=== PATIENT | female | born 1970 | race American Indian/Alaskan Native ===

== ENCOUNTER 2016-08-10 08:14 | Outpatient (CLI) | payer BC ==
--- NOTE | 2016-08-10 13:31 | Mammography Report ---
BILATERAL DIGITAL SCREENING MAMMOGRAM with CAD: 08/10/16 08:14:00 CLINICAL: Routine screening. COMPARISON:08/10/15 FINDINGS: The breasts are heterogeneously dense, which may obscures small masses. Bilateral asymmetries require additional imaging.No architectural distortion or suspicious calcifications. IMPRESSION: Bilateral asymmetries requiring further workup. BI-RADS CATEGORY: 0 -- Additional Imaging Evaluation Required RECOMMENDATION: Recall for bilateral spot compression views and bilateral breast ultrasound if needed. ACR BI-RADS MAMMOGRAPHIC CODES: 0 = Needs additional imaging evaluation; 1 = Negative; 2 = Benign; 3 = Probably benign; 4 = Suspicious; 5 = Malignant; 6 = Known biopsy-proven malignancy COMMENT: 1. Dense breast tissue, i.e., adenosis, fibrocystic changes, etc., may obscure an underlying neoplasm. 2. Approximately 10% of cancers are not detected with mammography. 3. A negative mammography report should not delay biopsy if a clinically suspicious mass is present. COMMENT: Patient follow-up letters are generated via our [employer] application.
== END 2016-08-10 08:15 | disposition home or self-care (01) ==
LOC: SPVWC 08:14
PROVIDERS: ATTEND Obstetrics & Gynecology
DX: Z12.31 Encounter for screening mammogram for malignant neoplasm of breast (principal)
CPT/HCPCS: 77067; G0202

== ENCOUNTER 2016-08-22 08:33 | Outpatient (CLI) | payer BC ==
--- NOTE | 2016-08-22 09:17 | Mammography Report ---
BILATERAL DIGITAL DIAGNOSTIC MAMMOGRAM : 08/22/16 08:33:00 CLINICAL: Recalled for bilateral asymmetries. COMPARISON:08/10/16 screening FINDINGS: Bilateral spot compression MLO views were performed and demonstrate no persistent asymmetries. IMPRESSION: Negative Mammogram. BI-RADS CATEGORY: 1 -- Negative RECOMMENDATION: Routine mammographic screening in one year. ACR BI-RADS MAMMOGRAPHIC CODES: 0 = Needs additional imaging evaluation; 1 = Negative; 2 = Benign; 3 = Probably benign; 4 = Suspicious; 5 = Malignant; 6 = Known biopsy-proven malignancy COMMENT: 1. Dense breast tissue, i.e., adenosis, fibrocystic changes, etc., may obscure an underlying neoplasm. 2. Approximately 10% of cancers are not detected with mammography. 3. A negative mammography report should not delay biopsy if a clinically suspicious mass is present. COMMENT: Patient follow-up letters are generated via our [employer] application.
== END 2016-08-22 08:34 | disposition home or self-care (01) ==
LOC: SPVWC 08:33
PROVIDERS: ATTEND Obstetrics & Gynecology
DX: R92.8 Other abnormal and inconclusive findings on diagnostic imaging of breast (principal)
CPT/HCPCS: 77066; G0204

== ENCOUNTER 2017-08-24 08:12 | Outpatient (CLI) | payer BC ==
--- NOTE | 2017-08-24 16:18 | Mammography Report ---
BILATERAL DIGITAL SCREENING MAMMOGRAM with CAD: 08/24/17 08:12:00 CLINICAL: Routine screening. COMPARISON:08/10/16 and 08/10/15 FINDINGS: The breasts are heterogeneously dense, which may obscure small masses. No mass, architectural distortion or suspicious calcifications. IMPRESSION: No mammographic evidence of malignancy. BI-RADS CATEGORY: 1 - - Negative RECOMMENDATION: Routine mammographic screening in one year. COMMENT: Patient follow-up letters are generated by our [employer] application.
== END 2017-08-24 08:13 | disposition home or self-care (01) ==
LOC: SPVWC 08:12
PROVIDERS: ATTEND Obstetrics & Gynecology
DX: Z12.31 Encounter for screening mammogram for malignant neoplasm of breast (principal)
CPT/HCPCS: 77067

== ENCOUNTER 2018-09-20 08:30 | Outpatient (CLI) | payer BC ==
--- NOTE | 2018-09-20 09:45 | Mammography Report ---
DIGITAL SCREENING MAMMOGRAM WITH CAD, 09/20/2018 INDICATION: Routine screening mammography. TECHNIQUE: Digital bilateral 2D mammography was obtained in the craniocaudal and mediolateral obliq ue projections. This examination was interpreted with the benefit of Computer-Aided Detection analysi s. COMPARISON: 08/10/2015 FINDINGS: Breast Density: The breasts are heterogeneously dense, which may obscure small masses. There is no evidence of dominant mass, suspicious calcifications or architectural distortion in eithe r breast. No interval change. IMPRESSION: No evidence of malignancy. BI-RADS Category 1: Negative. No mammographic evidence of malignancy. Recommend routine screening m ammography in one year. A "normal" or negative report should not discourage follow up or biopsy of a clinically significant f inding. A written summary of these findings will be mailed to the patient. The patient will be entered into a mammography reporting system which will generate a reminder letter for the patient's next appointmen t at the appropriate interval. The [employer] recommends yearly mammograms starting at age 40 and continuing as l delroy as a woman is in good health. Breast MRI is recommended for women with an approximate 20-25% or greater lifetime risk of breast cancer, including women with a strong family history of breast or ova venecia cancer or who have been treated for Hodgkin's disease. Signer Name: Yanna Salazar MD Signed: 09/20/2018 9:40 AM Workstation Name: [id number]
== END 2018-09-20 08:31 | disposition home or self-care (01) ==
LOC: SPVWC 08:30
PROVIDERS: ATTEND Obstetrics & Gynecology
DX: Z12.31 Encounter for screening mammogram for malignant neoplasm of breast (principal)
CPT/HCPCS: 77067

== ENCOUNTER 2019-09-24 08:33 | Outpatient (CLI) | payer BC ==
--- NOTE | 2019-09-25 11:17 | Mammography Report ---
BILATERAL DIGITAL SCREENING MAMMOGRAM WITH CAD HISTORY: SCREENING TECHNIQUE: Routine digital mammographic imaging performed. This examination was interpreted with skip franklin benefit of Computer-aided Detection analysis. COMPARISON: 09/20/2018, 08/24/2017, 08/22/2016, 08/10/2016. FINDINGS: Breast Density: scattered fibroglandular appearance of the breast tissue. Digital CC and MLO views demonstrate no mammographic evidence of malignancy. IMPRESSION: No mammographic evidence of malignancy. If the clinical examination remains stable, recommend bilate ral mammogram in approximately one year. BIRADS 1: Negative. FURTHER INFORMATION: According to the [employer], yearly mammograms are recommend ed starting at age 40 and continuing as long as a woman is in good health. Clinical Breast Exams shou ld be part of a periodic health exam-about every 3 years for women in their 20s and 30s and every yea r for women 40 and over. Breast self exam is an option for women starting in their 20s. Any breast ch dara noted on a breast self exam should be reported promptly to the patient's healthcare provider. Br east MRI is recommended for women with an approximately 20-25% or greater lifetime risk of breast can cer, including women with a strong family history of breast or ovarian cancer and women who have been treated for Hodgkin's disease. A negative Mammography report should not discourage follow up or biopsy of a clinically significant f inding and/or abnormality. Dense breast tissue may obscure small neoplasms. The patient will be entered into a reminder system with a target due date for the next screening mamm ogram. Signer Name: Terence Aguilar MD Signed: 09/24/2019 9:27 AM Workstation Name: [id number]
== END 2019-09-24 08:34 | disposition home or self-care (01) ==
LOC: SPVWC 08:33
PROVIDERS: ATTEND Obstetrics & Gynecology
DX: Z12.31 Encounter for screening mammogram for malignant neoplasm of breast (principal)
CPT/HCPCS: 77067

== ENCOUNTER 2019-12-31 08:46 | Outpatient (CLI) | payer BC ==
--- NOTE | 2020-01-01 08:30 | Magnetic Resonance Report ---
Bilateral breast MR without and with contrast. History: Screening breast MRI, patient at high risk for breast malignancy based upon family history. Comparison: 09/24/2019, 09/20/2018, 08/24/2017. Technique: Multiplanar multisequence MR images of the breast were obtained before and after the intra venous administration of 17 mL of MultiHance intravenous contrast. Post processing analysis and revie w was performed on a separate computer workstation. Findings: Breast composition is scattered fibroglandular. There is mild background parenchymal enhancement with in both breasts. Multiple scattered enhancing foci are present bilaterally which decreases the sensit ivity of MRI. RIGHT BREAST: Located within the far posterior slightly lateral right breast is a 6 x 4 mm reniform s haped mass which is most consistent with an intramammary lymph node. No other discrete enhancing mass , dominant focus, or other abnormal enhancement. The scattered enhancing foci within the right breast demonstrates primarily low level enhancing kinetics which is typical of benign etiologies. LEFT BREAST: No discrete enhancing mass, dominant focus, or other abnormal enhancement. The multiple scattered enhancing foci demonstrate primarily low level enhancement kinetics which is typical of aliyah ign etiologies. No abnormal axillary or internal mammary lymph nodes. Impression: No evidence of malignancy. Patient will be due for annual screening mammogram in September 2020. Recomme nd screening breast MRI in one year given patient's high risk for breast malignancy. BIRADS 2: Benign A normal MRI does not exclude the presence of some forms of breast malignancy as literature reports s uggest that some forms of ductal carcinoma in situ or lobular carcinoma, particularly, may not be det ected on MRI. The sensitivity and specificity of MRI for cancers under 5 mm may be reduced. MRI does not replace the recommendation for annual conventional mammographic evaluation and should be used as an adjunct to mammography and physical examination as necessary. Signer Name: Terence Aguilar MD Signed: 01/01/2020 8:29 AM Workstation Name: [id number]
== END 2019-12-31 08:47 | disposition home or self-care (01) ==
LOC: SPVIMAG 08:46
PROVIDERS: ATTEND Surgery
DX: Z12.31 Encounter for screening mammogram for malignant neoplasm of breast (principal); Z80.3 Family history of malignant neoplasm of breast
CPT/HCPCS: A9577; C8908; 77049

== ENCOUNTER 2020-09-24 08:10 | Outpatient (CLI) | payer BC ==
--- NOTE | 2020-09-24 10:56 | Mammography Report ---
DIGITAL SCREENING MAMMOGRAM WITH CAD, 09/24/2020 CLINICAL INFORMATION / INDICATION: Routine screening mammography. SCREENING MAMMO Z12.31 TECHNIQUE: Digital bilateral 2D mammography was obtained in the craniocaudal and mediolateral obliqu e projections. This examination was interpreted with the benefit of Computer-Aided Detection analysis . COMPARISON: 09/24/2019 FINDINGS: Breast Density: There are scattered areas of fibroglandular density. No dominant mass, suspicious calcifications, or architectural distortion in either breast. IMPRESSION: No mammographic evidence of malignancy. Follow up recommendation: Routine yearly BI-RADS Category 1: Negative. A "normal" or negative report should not discourage follow up or biopsy of a clinically significant f inding. A written summary of these findings will be mailed to the patient. The patient will be entered into a mammography reporting system which will generate a reminder letter for the patient's next appointmen t at the appropriate interval. The [employer] recommends yearly mammograms starting at age 40 and continuing as l delroy as a woman is in good health. Breast MRI is recommended for women with an approximate 20-25% or greater lifetime risk of breast cancer, including women with a strong family history of breast or ova venecia cancer or who have been treated for Hodgkin's disease. Signer Name: Leroy Abbasi MD Signed: 09/24/2020 10:51 AM Workstation Name: [id number] (acquired by [employer] in 2014)
== END 2020-09-24 08:11 | disposition home or self-care (01) ==
LOC: SPVWC 08:10
PROVIDERS: ATTEND Surgery
DX: Z12.31 Encounter for screening mammogram for malignant neoplasm of breast (principal)
CPT/HCPCS: 77067